=== PATIENT | male | born 1980 | race Caucasian/White ===

== ENCOUNTER 2022-12-14 14:58 | Outpatient (OUT) | payer OTHER, SELFPAY ==
--- NOTE | 2022-12-14 | XR_ITS ---
The [address] [address] Patient Name: LUCÍA CARRANZA MRN: [id number] date: 1980 Sex: M Assigned Patient Location: [facility] Current Patient Location: Accession/Order Number: [id number] Exam Date: 12/14/2022 15:10 Report Date: 12/15/2022 06:29 At the request of: LEXI ALMODOVAR Procedure: XR foot RT min 3V PROCEDURE: XR foot RT min 3V COMPARISON: None. HISTORY: RIGHT FOOT TOE MASS FINDINGS: BONES:No fracture, acute abnormality, or significant arthropathy. SOFT TISSUES:Negative. No visible soft tissue swelling. EFFUSION:None visible. OTHER: Negative. XR/XR foot RT min 3V IMPRESSION: No acute radiographic abnormality Electronically authenticated by: ALEJANDRINA MORAN Date: 12/15/2022 06:29
== END 2022-12-14 14:59 | disposition home or self-care (01) ==
LOC: RAD 14:59
PROVIDERS: Visit Provider Physician Assistant
DX: S99.921A Unspecified injury of right foot, initial encounter (principal)
CPT/HCPCS: 73630

== ENCOUNTER 2023-01-18 12:41 | Outpatient (OUT) | payer OTHER, SELFPAY ==
--- NOTE | 2023-01-18 13:41 | P.GSHP_ITS ---
History of Present Illness History of Present Illness Chief complaint: hammer toe right foot Narrative: The patient presents for preadmission testing. The patient reports toe deformities and right foot pain. 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 He has tried taping his toes, ibuprofen, and Tylenol with only some relief of his symptoms which was temporary. He denies numbness, tingling, weakness, or any other complaints. Review of Systems ROS Narrative REVIEW OF SYSTEMS: Negative except as stated in HPI, ten or more systems reviewed. Constitutional: No fever , chills, weakness ENT: No sore throat or epistaxis Cardiovascular: No edema, chest pain, palpitations, or activity intolerance Respiratory: No shortness of breath, cough, or wheezing Gastrointestinal: No abdominal pain, constipation, diarrhea, or vomiting Genitourinary: No dysuria or hematuria Neurological: No numbness, tingling, weakness, or headache Psychiatric: No mood changes PFSH PFSH Medical History (Updated 01/18/23 @ 13:19 by Laya Rogel NP) ADD (attention deficit disorder) ?F98.8 - Other specified behavioral and emotional disorders with onset usually occurring in childhood and adolescence (ICD-10) Bunionette ?M21.629 - Bunionette of unspecified foot (ICD-10) Hammertoe ?M20.40 - Other hammer toe(s) (acquired), unspecified foot (ICD-10) Heartburn ?R12 - Heartburn (ICD-10) Other specified disorders of bone, ankle and foot ?M89.8X7 - Other specified disorders of bone, ankle and foot (ICD-10) Plantar fasciitis ?M72.2 - Plantar fascial fibromatosis (ICD-10) Surgical History (Updated 01/18/23 @ 13:18 by Laya Rogel NP) History of hernia repair ?Z98.890 - Other specified postprocedural states (ICD-10) ?Z87.19 - Personal history of other diseases of the digestive system (ICD-10) History of surgery on arm (03/2009) ?Z98.890 - Other specified postprocedural states (ICD-10) Family History (Updated 01/18/23 @ 13:18 by Laya Rogel NP) Other Family history of diabetes mellitus Family history of heart disease Family history of stroke Family history of throat cancer Pacemaker Social History (Updated 01/18/23 @ 13:12 by Laya Rogel NP) Within the past year, how often did you have a drink containing alcohol: 2-3 times a week Within the past year, how many standard drinks containing alcohol did you have on a typical day: 3 or 4 Smoking status: Former smoker Non-prescribed substance use: denies use Previous occupational history: Landscape Highest level of school completed/degree received: high school graduate Meds Home Medications and Allergies Home Medications Medication Instructions Recorded Confirmed Type lisdexamfetamine 40 mg capsule 40 mg PO DAILY 01/18/23 01/18/23 History (Vyvanse) Allergies Allergy/AdvReac Type Severity Reaction Status Date / Time No Known Drug Allergies Allergy Verified 01/18/23 13:10 Exam Narrative Exam Narrative: Constitutional: Awake, alert, comfortable, well-appearing, nontoxic, interactive, vital signs as charted Head: Normocephalic, atraumatic Neck: Supple, normal appearance, normal range of motion, no meningeal signs, no lymphadenopathy Respiratory: No respiratory distress, breath sounds clear Cardiovascular: Regular rate and rhythm, strong and regular heart tones Musculoskeletal: Deformities noted of 2nd and 3rd toes right foot with tenderness of the 2nd toe, 5th toe deformity and swelling noted, good capillary refill, sensation intact Skin: No rashes or induration, no lesions, only visible skin inspected Neuro: No neurological deficits, normal sensation Psychiatric: Oriented ?3, normal affect Assessment and Plan Assessment and Plan (1) Bunionette: (2) Hammertoe: Plan Exostectomy of right 2nd and 3rd toes, right 5th hammertoe correction and tailor's bunionectomy scheduled with Dr. Patton 01/31/2023.
[2023-01-18 14:03] LABS: Anion Gap 12.7; BUN Creatinine Ratio 15.7; Calcium 9.1 mg/dL (8.5-10.1); Carbon Dioxide 28.7 mmol/L (21.0-32.0); Chloride 101 mmol/L (98-107); Estimated GFR (African America >60 (>=60); Estimated GFR (Non-African Ame >60 (>=60); Glucose 88 mg/dL (74-106); Potassium 4.4 mmol/L (3.5-5.1); Sodium 138 mmol/L (136-145)
== END 2023-01-18 12:42 | disposition home or self-care (01) ==
LOC: PST 12:44
PROVIDERS: Visit Provider Podiatrist Foot & Ankle Surgery
DX: Z01.810 Encounter for preprocedural cardiovascular examination (principal); Z01.812 Encounter for preprocedural laboratory examination; M89.8X7 Other specified disorders of bone, ankle and foot; M20.41 Other hammer toe(s) (acquired), right foot
CPT/HCPCS: 80048; 93005; G0463

== ENCOUNTER 2023-01-31 06:36 | Day surgery (SDC) | payer OTHER, SELFPAY ==
--- NOTE | 2023-01-18 13:30 | ECG_ITS ---
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
[2023-01-18 13:31] VITALS: BP 115/74; PULSE 62; RESP 14; TEMP 36.3; O2SAT 100; BMI 27.3
[2023-01-31] VITALS (11 sets, daily range): BP systolic 116–144; BP diastolic 71–91; PULSE 54–70; RESP 5–17; TEMP 36.1–36.2; O2SAT 95–100; BMI 26.9
[2023-01-31] MEDS: LACTATED RINGER'S SOLUTION 1,000 ML 50 ML IV (07:12)
[2023-01-31 07:13] LABS: Glucometer 79 mg/dL (74-106)
[2023-01-31] MEDS: CEFAZOLIN SODIUM/DEXTROSE,ISO 2 GM/50 ML PIGGYBACK IV (07:29)
[2023-01-31] MEDS: BUPIVACAINE HCL 0.5% PF 50 MG/10 ML VIAL INJ (08:26)
[2023-01-31] MEDS: LIDOCAINE HCL 1% 100 MG/10 ML MDV INJ (08:27)
--- NOTE | 2023-01-31 09:15 | PM.ORONB ---
Brief Operative Note Date of procedure: 01/31/23 Pre-op diagnosis: exostosis toes 2 & 3, 5th hammertoe, Tailor's bunion bilateral feet Post-op diagnosis: same as pre-op Procedure: procedures performed: Condylectomy of toes two and three, 5th hammertoe arthroplasty and tailor's bunionectomy bilateral feet Intraoperative findings: Bony prominence noted on the lateral aspect of the right 2nd PIPJ and medial aspect of right 3rd DIPJ. Bony prominences also noted on the left lateral 2nd DIPJ and medial 3rd DIPJ. 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 Bone quality within normal limits. Procedure in detail: Patient was identified in pre op and consent was reviewed. Correct side and site were identified and marked. Pre-op antibiotics were started. Patient was brought to OR suite and place on table in a supine position. General anesthesia was administered. Tourniquet applied. Operative extremity was prepped and draped in usual sterile fashion. Formal time-out was performed and the RIGHT foot/ankle were exsanguinated and tourniquet inflated. With attention to the right 2nd toe a longitudinal incision was placed over the proximal interphalangeal joint and combination sharp and blunt dissection gained access to the head of the proximal phalanx. The lateral collateral ligaments were released exposing the lateral condyle of the 2nd proximal interphalangeal joint. A sagittal saw was used to remove which was then smoothed and contoured with a hand rasp. Surgical site was irrigated with copious saline. Then a stab incision was placed over the medial aspect of the right 3rd distal interphalangeal joint and combination sharp and blunt dissection gained access to the lateral condyles of the distal end medial phalanges. Hand rasp was used to smooth and contour the prominence. Surgical site was irrigated with copious saline. With attention to the RIGHT 5th digit a semi-elliptical dorsal incision was created over the PIPJ. Sharp and blunt dissection down to the extensor tendon was performed. The tendon was incised transversely then reflected proximally. A sagittal saw was used to remove the proximal phalanx head. The site was flushed with sterile saline. next incision was placed over the 5th metatarsal phalangeal joint and comminution sharp and blunt dissection gained access to the joint which was released laterally performing capsulotomy. Then the prominence of the lateral eminence was removed with a sagittal saw. The lateral eminence was then excised and passed the back table. The 5th metatarsal head was then contoured with hand rasp and surgical site was irrigated with copious saline. The extensor tendon of the 5th toe was repaired with absorbable suture. and all surgical sites were irrigated then closed in layers. The tourniquet was deflated with a prompt hyperemic response. Next with attention to the LEFT foot and ankle the extremity was exsanguinated and tourniquet inflated. A stab incision was placed over the lateral aspect of the left 2nd distal interphalangeal joint and combination sharp and blunt dissection gained access to the lateral condyles of the distal end medial phalanges. Hand rasp was used to smooth and contour the prominence. Surgical site was irrigated with copious saline. Then a stab incision was placed over the medial aspect of the left 3rd distal interphalangeal joint and combination sharp and blunt dissection gained access to the lateral condyles of the distal end medial phalanges. Hand rasp was used to smooth and contour the prominence. Surgical site was irrigated with copious saline. With attention to the left 5th digit a semi-elliptical dorsal incision was created over the PIPJ. Sharp and blunt dissection down to the extensor tendon was performed. The tendon was incised transversely then reflected proximally. A sagittal saw was used to remove the proximal phalanx head. The site was flushed with sterile saline. A longitutdinal incision was placed over the 5th metatarsal phalangeal joint and comminution sharp and blunt dissection gained access to the joint which was released laterally performing capsulotomy. Then the prominence of the lateral eminence was removed with a sagittal saw. The lateral eminence was then excised and passed the back table. The 5th metatarsal head was then contoured with hand rasp and surgical site was irrigated with copious saline. The extensor tendon of the 5th toe was repaired with absorbable suture. and all surgical sites were irrigated then closed in layers. The tourniquet was deflated with a prompt hyperemic response. a dry sterile dressing and surgical shoes were placed on each foot. Patient tolerated the procedure and anesthesia well and was transported to the recovery room with vital signs stable and brisk capillary refill to all toes. Postoperative plan:Discharge home under family's care Post op instructions provided verbally and written prescription(s) were placed in chart weightbearing as tolerated in surgical shoes until sutures removed Patient may wash surgical sites with soap and water and change bandage daily Follow-up in 1 week Implants: none Anesthesia: General-LMA Surgeon: Rajendra Patton Film Or Tape Librarian: Daniel Childress Estimated blood loss (mL): 20 Condition: stable Disposition: PACU Preoperative Details Reason for procedure: patient is a 42-year-old male whose had worsening pain and deformity associated with 2nd and 3rd and 5th toes as well as tailor's bunion. He is attempted shoe modification, OTC pain medicine and padding/toe sleeves without help. He initially saw me for his right foot and due to failure to respond to nonsurgical care he wished to proceed with surgical correction. He was educated and all potential risks and benefits of the procedure and all questions were answered to satisfaction. Today in preoperative holding patient also asked if his left 2nd and 3rd and 5th toes as well as tailor's bunion could be fixed as well given he has daily pain associated with his left foot as well as his right however the right is more painful. Examination revealed bony prominence on the lateral 2nd DIPJ and medial 3rd DIPJ. Similar to the contralateral side he had adductovarus contracture of the left 5th toe and prominence of the lateral eminence of the 5th metatarsal. His consent was updated to include both feet and he was made aware that he would need to wear a surgical shoe for 2-3 weeks or until incisions are healed. All questions answered to satisfaction.
--- NOTE | 2023-01-31 09:16 | XR_ITS ---
The [address] [address] Patient Name: LUCÍA CARRANZA MRN: [facility]:[id number] date: 1980 Sex: M Assigned Patient Location: [facility] Current Patient Location: [facility] Accession/Order Number: [id number] Exam Date: 01/31/2023 09:50 Report Date: 02/01/2023 11:03 At the request of: MISAEL MACK Procedure: XR foot CITLALLI min 3V EXAM: XR foot CITLALLI min 3V 01/31/2023 COMPARISON STUDY: Right foot 12/14/2022. HISTORY: Postop x-ray PACU FINDINGS: Right foot: Frontal, oblique, and lateral views were obtained. XR/XR foot CITLALLI min 3V IMPRESSION: 1. Interval osteotomy associated with the head of the fifth proximal phalanx noted. 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 2. The alignment is otherwise intact and remaining joint spaces are stable in appearance. No acute fracture or dislocation has developed. 3. Small calcaneal enthesophytes at the insertion sites of the Achilles tendon and plantar aponeurosis again noted. Similar mild arthritic changes at the subtalar, tibiotalar, and talonavicular articulations and less so about the first MTP articulation noted again. Left foot: Frontal, oblique, and lateral views were obtained. IMPRESSION: 1. Similar osteotomy involving the head of the fifth proximal phalanx noted. 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 2. Small calcaneal enthesophytes are also noted. Minor arthritic changes at the first MTP and talonavicular articulations noted. 3. No acute fracture or dislocation. Electronically authenticated by: STARLA SALEH Date: 02/01/2023 11:03
[2023-01-31 09:46] LABS: Glucometer 89 mg/dL (74-106)
[2023-01-31] MEDS: OXYCODONE HCL/ACETAMINOPHEN 5MG/325MG 1 TAB PO (10:00)
[2023-01-31 16:05] LABS: HIV Antigen NON-REACTIVE (NONREACTIVE)
[2023-02-01 06:08] LABS: HBsAg Screen Negative (Negative); HCV Antibody Non Reactive (Non Reactive)
[2023-02-01 14:09] LABS: Rapid Plasma Reagin, Quant Non Reactive titer (NonRea<1:1)
== END 2023-01-31 10:45 | disposition home or self-care (01) ==
PROVIDERS: Emergency Medicine; Visit Provider Podiatrist Foot & Ankle Surgery
PROC: (CPT 1480; principal; 2023-01-31 07:30)
DX: M20.41 Other hammer toe(s) (acquired), right foot (principal); M89.8X7 Other specified disorders of bone, ankle and foot; I10 Essential (primary) hypertension; M21.622 Bunionette of left foot; M21.621 Bunionette of right foot; M89.9 Disorder of bone, unspecified; R12 Heartburn; M72.2 Plantar fascial fibromatosis; Z87.891 Personal history of nicotine dependence; E78.5 Hyperlipidemia, unspecified; G47.419 Narcolepsy without cataplexy; L84 Corns and callosities; K21.9 Gastro-esophageal reflux disease without esophagitis
CPT/HCPCS: 28110 ×2; 28124 ×4; 28285 ×2; 36415; 73630; 82948; 86592; 86803; 87340; 87389; J2704